=== PATIENT | male | born 1990 | race Caucasian/White ===

== ENCOUNTER 2020-06-04 20:38 | Emergency (ER) | payer MEDICAID ==
[~2020-06-04] VITALS: Ht 177.8 cm; Wt 77.3 kg
[2020-06-04] MEDS ORDERED: NAPR-1197 PO (20:54)
[2020-06-04] MEDS ORDERED: IBUP-2070 PO (20:54)
[2020-06-04 21:17] VITALS: BP 146/90
== END 2020-06-04 21:23 | disposition home or self-care (01) ==
LOC: EMS 20:38
DX: S42.022A Displaced fracture of shaft of left clavicle, initial encounter for closed fracture (principal); Z79.899 Other long term (current) drug therapy; W11.XXXA Fall on and from ladder, initial encounter; Y93.89 Activity, other specified; Y92.89 Other specified places as the place of occurrence of the external cause; Y99.8 Other external cause status
CPT/HCPCS: 99281; Z7502